=== PATIENT | female | born 1970 | race Caucasian/White ===

== ENCOUNTER 2017-01-04 18:31 | Emergency (ER) | payer MEDICARE ==
[~2017-01-04 18:31] MED LIST: AUGMENTIN TAB875 MG PO; COMBIVENT RESPIM4 GM INH; EFFEXOR 37.537.5 MG PO; ELIQUIS5 MG PO; FERROUS SULFAT325 M2 PO; HABITROL 21 MG P1 EA TD; LISINOPRIL10 MG PO; NEURONTIN 300300 MG PO; PRILOSEC40 MG PO; SUBOXONE 8 MG-1 EACH SL; VISTARIL 25 MG25 MG PO; ZANTAC150 MG PO
[2017-01-04 20:53] LABS: RED BLOOD COUNT 3.82 M/UL (4.00-5.10); WHITE BLOOD COUNT 14.1 K/UL (4.5-11.0)
[2017-01-04 20:54] LABS: HEMOGLOBIN 6.6 gm/dl (12.3-15.3)
[2017-01-04 21:04] LABS: BUN/CREATININE RATIO 17 (0-10)
== END 2017-01-05 03:31 | disposition short-term general hospital (02) ==
LOC: ER1 18:31
PROVIDERS: Emergency Medicine
DX: K92.2 Gastrointestinal hemorrhage, unspecified (principal); D50.0 Iron deficiency anemia secondary to blood loss (chronic); F17.200 Nicotine dependence, unspecified, uncomplicated; Z86.79 Personal history of other diseases of the circulatory system; Z79.01 Long term (current) use of anticoagulants
CPT/HCPCS: 36415; 36430; 80053; 82272; 83690; 85025; 85610; 85730; 86850; 86900; 86901; 86920; 96361; 96374; 99291; C9113; P9016

== ENCOUNTER 2021-02-27 19:17 | Emergency (ER) | payer OTHER ==
[~2021-02-27 19:17] MED LIST changes: +AMOX TR-K CLV1 EAC4 PO; +AUGMENTIN 875-1 EACH PO; +AZITHROMYCIN250 MG PO; +BACTRIM DS TAB1 EACH PO; +CATAPRES 0.1MG0.1 MG PO; +COLACE 100MG C100 MG PO; +EFFEXOR XR75 MG PO; +FEOSOL325 MG PO; +GABAPENTIN800 MG PO; +GLUCOPHAGE500 MG PO; +HYDROCHLOROTHIA25 MG PO; +IBUPROFEN600 MG PO; +IBUPROFEN800 MG PO; +KEPPRA500 MG PO; +LACTINEX TABLET1 EA PO; +LASIX20 MG PO; +LIDODERM TOP; +MOBIC7.5 MG PO; +OMEGA-31000 MG PO; +OMEPRAZOLE20 M1 PO; +POTASSIUM CHLO10 ME1 PO; +PRAVACHOL40 MG PO; +REQUIP2 MG PO; +SIMVASTATIN80 MG PO; +SYMBICORT 160-1 INHA INH; +VENLAFAXINE HCL75 MG PO; +ZANAFLEX4 MG PO; +ZESTRIL/PRINIVI10 MG PO
== END 2021-02-27 21:36 | disposition left against medical advice (07) ==
LOC: ER1 19:17
DX: Z53.21 Procedure and treatment not carried out due to patient leaving prior to being seen by health care provider (principal)

== ENCOUNTER 2021-05-30 17:11 | Emergency (ER) | payer OTHER ==
[~2021-05-30 17:11] MED LIST changes: -CLEOCIN HCL300 MG PO
[2021-05-30 18:29] LABS: HEMOGLOBIN 10.2 gm/dl (12.3-15.3); RED BLOOD COUNT 4.83 M/UL (4.00-5.10); WHITE BLOOD COUNT 12.8 K/UL (4.5-11.0)
[2021-05-30 18:52] LABS: BUN/CREATININE RATIO 16 (0-10)
[2021-05-30] MEDS ORDERED: IBUPROFEN600 MG PO (21:45)
[2021-05-30] MEDS ORDERED: CLEOCIN HCL300 MG PO (21:45)
== END 2021-05-30 21:55 | disposition home or self-care (01) ==
LOC: ER1 17:11
PROVIDERS: Physician Assistant Medical
DX: L03.115 Cellulitis of right lower limb (principal); M25.531 Pain in right wrist; F17.210 Nicotine dependence, cigarettes, uncomplicated; E11.9 Type 2 diabetes mellitus without complications; I11.0 Hypertensive heart disease with heart failure; I50.9 Heart failure, unspecified; Z79.01 Long term (current) use of anticoagulants; Z88.8 Allergy status to other drugs, medicaments and biological substances
CPT/HCPCS: 29125; 73590; 80053; 85025; 99283

== ENCOUNTER → 2021-05-30 | Outpatient (CLI) | payer OTHER ==
[~2021-05-30] MED LIST changes: +CLEOCIN HCL300 MG PO
== END ==
LOC: RAD 16:50
DX: M25.531 Pain in right wrist (principal); R60.0 Localized edema; S69.91XA Unspecified injury of right wrist, hand and finger(s), initial encounter; S52.501A Unspecified fracture of the lower end of right radius, initial encounter for closed fracture; M84.431A Pathological fracture, right ulna, initial encounter for fracture; W19.XXXA Unspecified fall, initial encounter
CPT/HCPCS: 73110

== ENCOUNTER 2022-05-12 12:22 | Inpatient (IN) | payer OTHER ==
[~2022-05-12] VITALS: Ht 160 cm; Wt 75.2 kg
[~2022-05-12 12:22] MED LIST changes: +CLEOCIN HCL300 MG PO; -EFFEXOR XR75 MG PO; -GLUCOPHAGE500 MG PO; +METFORMIN HCL1000 MG PO; -OMEPRAZOLE20 M1 PO; +OMEPRAZOLE20 MG PO; +VENLAFAXINE HC150 M1 PO; -ZESTRIL/PRINIVI10 MG PO; +ZESTRIL40 MG PO
[2022-05-12 13:26] LABS: HEMOGLOBIN 9.5 gm/dl (12.3-15.3); RED BLOOD COUNT 4.38 M/UL (4.00-5.10); WHITE BLOOD COUNT 8.2 K/UL (4.5-11.0)
[2022-05-12 14:37] LABS: BUN/CREATININE RATIO 21 (0-10)
[2022-05-12] MEDS ORDERED: DOCUSATE SODIU100 MG PO (16:03)
[2022-05-12] MEDS ORDERED: CLONIDINE HCL0.3 MG PO (16:03)
[2022-05-12] MEDS ORDERED: HYDROXYZINE HCL25 MG PO (16:04)
[2022-05-12] MEDS ORDERED: POTASSIUM CHLO20 ME2 PO (16:04)
[2022-05-12] MEDS ORDERED: FUROSEMIDE40 MG PO (16:04)
[2022-05-12] MEDS ORDERED: FERROUS SULFAT325 MG PO (16:04)
[2022-05-12] MEDS ORDERED: TERBINAFINE HC250 MG PO (16:05)
[2022-05-12] MEDS ORDERED: ROPINIROLE HCL3 MG PO (16:05)
[2022-05-12] MEDS ORDERED: ALBUTEROL1.25 MG/3 INH (16:05)
[2022-05-12] MEDS ORDERED: CYCLOBENZAPRINE10 MG PO (16:06)
[2022-05-12] MEDS ORDERED: VITAMIN D21250 MCG PO (16:06)
[2022-05-12] MEDS ORDERED: PROAIR HFA8.5 GM INH (16:06)
[2022-05-13 02:57] LABS: HEMOGLOBIN 9.1 gm/dl (12.3-15.3); RED BLOOD COUNT 4.14 M/UL (4.00-5.10); WHITE BLOOD COUNT 8.5 K/UL (4.5-11.0)
[2022-05-13 04:13] LABS: BUN/CREATININE RATIO 22 (0-10)
[2022-05-13 14:28] LABS: CANDIDA ALBICANS Not Detected (Negative); CANDIDA KRUSEI Not Detected (Negative); CANDIDA TROPICALIS Not Detected (Negative); ESCHERICHIA COLI Not Detected (Negative); HAEMOPHILUS INFLUENZAE Not Detected (Negative); KLEBSIELLA OXYTOCA Not Detected (Negative); KLEBSIELLA PNEUMONIAE Not Detected (Negative); KPC-CARBAPENEM-RESISTANCE GENE Not Detected (Negative); PROTEUS Not Detected (Negative); PSEUDOMONAS AERUGINOSA Not Detected (Negative); SERRATIA MARCESANS Not Detected (Negative); STAPHYLOCOCCUS AUREUS Not Detected (Negative); STREP AGALACTIAE (GROUP B) Not Detected (Negative); STREP PYOGENES (GROUP A) Not Detected (Negative); STREPTOCOCCUS Not Detected (Negative); vanA/B (VANCOMYCIN RESIST GENE Not Detected (Negative)
[2022-05-13 14:29] LABS: STAPHYLOCOCCUS DETECTED (Negative)
[2022-05-14 02:42] LABS: HEMOGLOBIN 9.5 gm/dl (12.3-15.3); RED BLOOD COUNT 4.35 M/UL (4.00-5.10); WHITE BLOOD COUNT 7.4 K/UL (4.5-11.0)
[2022-05-14 03:34] LABS: BUN/CREATININE RATIO 22 (0-10)
[2022-05-15] MEDS ORDERED: KEPPRA 500 MG500 MG PO (10:44)
== END 2022-05-15 13:13 | disposition home or self-care (01) | DRG 100 ==
LOC: ER1 12:22 → CDU 15:33 → PROG CARE 15:33
PROVIDERS: Family Medicine; Internal Medicine Infectious Disease; Physician Assistant; ADMIT Internal Medicine
PROC: 5A09457 Assistance with Respiratory Ventilation, 24-96 Consecutive Hours, Continuous Positive Airway Pressure (ICD-10-PCS; principal; 2022-05-12)
DX: G40.909 Epilepsy, unspecified, not intractable, without status epilepticus (principal); J96.21 Acute and chronic respiratory failure with hypoxia; Z20.822 Contact with and (suspected) exposure to COVID-19; J96.22 Acute and chronic respiratory failure with hypercapnia; I50.32 Chronic diastolic (congestive) heart failure; F19.10 Other psychoactive substance abuse, uncomplicated; D50.9 Iron deficiency anemia, unspecified; E11.9 Type 2 diabetes mellitus without complications; I11.0 Hypertensive heart disease with heart failure; F41.9 Anxiety disorder, unspecified; K21.9 Gastro-esophageal reflux disease without esophagitis; F32.A Depression, unspecified; K42.9 Umbilical hernia without obstruction or gangrene; B19.20 Unspecified viral hepatitis C without hepatic coma; J44.9 Chronic obstructive pulmonary disease, unspecified; F17.210 Nicotine dependence, cigarettes, uncomplicated; Z96.649 Presence of unspecified artificial hip joint; F12.10 Cannabis abuse, uncomplicated; G47.33 Obstructive sleep apnea (adult) (pediatric); Z86.711 Personal history of pulmonary embolism; Z79.01 Long term (current) use of anticoagulants; Z82.49 Family history of ischemic heart disease and other diseases of the circulatory system; Z79.4 Long term (current) use of insulin; Z98.51 Tubal ligation status; Z90.49 Acquired absence of other specified parts of digestive tract; Z88.8 Allergy status to other drugs, medicaments and biological substances
CPT/HCPCS: 0240U; 36415; 36600; 51702; 70450; 70553; 71045; 80048; 80053; 80307; 81001; 82009; 82550; 82553; 82607; 82728; 82746; 82803; 82962; 83540; 83550; 83605; 83690; 83735; 84484; 85025; 85610; 87040; 87077; 87150; 87186; 92610; 93005; 94640; 94660; 94664; 94760; 96374; 96375; 99285; A9577; G0480; J1953